=== PATIENT | female | born 1965 | race Caucasian/White ===

== ENCOUNTER 2019-05-29 12:23 | Emergency (ER) | payer OTHER ==
[~2019-05-29] VITALS: Ht 170.2 cm; Wt 62.9 kg
[2019-05-29 12:24] VITALS: BP 139/71
[2019-05-29] MEDS ORDERED: NAPROXEN 250 MG TAB PO ONE (13:30)
--- NOTE | 2019-05-29 14:19 | REP ---
Left rib series: Three views. History: Pain with range of motion. Evaluate for degenerative joint disease or calcific tendonitis. Findings: Three views of the left shoulder demonstrate normal alignment of the glenohumeral and acromioclavicular joints. Periarticular soft tissues are unremarkable. No erosive changes seen. Impression: Negative radiographs of the left shoulder. Electronically Signed by Johny Abdullahi MD 05/29/2019 02:11 P
== END 2019-05-29 15:13 | disposition home or self-care (01) ==
LOC: M ED 12:23
DX: M25.512 Pain in left shoulder (principal); F17.210 Nicotine dependence, cigarettes, uncomplicated